=== PATIENT | male | born 1975 | race Caucasian/White ===

== ENCOUNTER 2021-12-06 19:51 | Observation (INO) ==
[2021-12-06] MEDS ORDERED: Iopamidol - 370 500 ML MLS IVP ONE (20:11)
[2021-12-06] MEDS ORDERED: Ipratropium/Albuterol Neb 3 ML IH ONE (20:13)
[2021-12-06] MEDS ORDERED: methylPREDNISolone 125 MG/2 ML VIAL IVP ONE (20:13)
[2021-12-06 20:20] LABS: Basophils % 0.4 %; Eosinophils # 0.3 K/mcL (0.0-0.6); Eosinophils % 3.8 %; Hematocrit 49.8 % (37.5-50.1); Immature Granulocytes % 0.2 % (0-4); Lymphocytes # 2.6 K/mcL (0.6-4.6); Lymphocytes % 29.5 %; Mean Corpuscular HGB Conc 32.1 g/dL (31.6-35.5); Mean Corpuscular Hemoglobin 28.3 pg (28.0-33.3); Mean Corpuscular Volume 88.1 fL (83.0-100.0); Mean Platelet Volume 12.4 fL (9.4-12.4); Monocytes # 0.6 K/mcL (0.0-1.3); Monocytes % 6.4 %; Neutrophils # 5.3 K/mcL (1.6-8.9); Platelet Count 175 K/mcL (140-400); Red Blood Count 5.65 M/mcL (4.19-5.50); Segmented Neutrophils % 59.7 %; White Blood Count 8.9 K/mcL (4.3-11.1)
[2021-12-06 20:35] LABS: INR 1.1; Prothrombin Time 12.7 Seconds (9.4-12.1)
[2021-12-06 20:47] LABS: ABG Base Excess 9 mEq/L (-2 to 3); ABG HCO3 38 mEq/L (21-27); ABG Oxygen Saturation 94 % (95-98); ABG PCO2 64 mmHg (35-45); ABG PH 7.38 pH Units (7.32-7.45); ABG PO2 77 mmHg (85-104); ABG TCO2 40 mEq/L (20-26)
[2021-12-06 20:54] LABS: BUN/Creatinine Ratio 3 (6-26); Blood Urea Nitrogen 2 mg/dL (6-20); Calcium 8.8 mg/dL (8.6-10.3); Carbon Dioxide 41 mEq/L (23-29); Chloride 91 mEq/L (98-107); Glucose 99 mg/dL (70-105); Osmolality,Calculated 280 (280-300); Potassium 3.7 mEq/L (3.5-5.1); Sodium 137 mEq/L (136-145); Troponin I < 0.03 ng/mL (< 0.04)
[2021-12-06 20:59] LABS: Influenza A PCR Negative (Negative); Influenza B PCR Negative (Negative); Resp. Syncytial Virus PCR Negative (Negative)
[2021-12-06 21:00] LABS: SARS-CoV-2 by PCR (In House) Negative (Negative)
[2021-12-06] MEDS ORDERED: Azithromycin 500 MG in 0.9 % Sodium Chloride 250 ML IVPB ONE (21:58)
[2021-12-06] MEDS ORDERED: cefTRIAXone 1,000 MG in 0.9 % Sodium Chloride 10 ML IVP ONE (21:58)
[2021-12-06] MEDS ORDERED: Naloxone 0.4 MG/ML INJ IVP PRN (22:55)
[2021-12-06] MEDS ORDERED: Ondansetron 4 MG/2 ML VIAL IVP PRN (22:55)
[2021-12-06] MEDS ORDERED: Acetaminophen 325 MG TABLET PO PRN (22:55)
[2021-12-06] MEDS ORDERED: Ipratropium/Albuterol Neb 3 ML IH PRN (23:04)
[2021-12-07 05:16] LABS: Basophils % 0.2 %; Eosinophils % 0.2 %; Hematocrit 48.7 % (37.5-50.1); Hemoglobin 15.4 g/dL (12.9-16.9); Immature Granulocytes % 0.2 % (0-4); Lymphocytes # 0.8 K/mcL (0.6-4.6); Lymphocytes % 16.9 %; Mean Corpuscular HGB Conc 31.6 g/dL (31.6-35.5); Mean Corpuscular Hemoglobin 27.8 pg (28.0-33.3); Mean Corpuscular Volume 88.1 fL (83.0-100.0); Mean Platelet Volume 12.8 fL (9.4-12.4); Monocytes % 0.9 %; Neutrophils # 3.7 K/mcL (1.6-8.9); Platelet Count 159 K/mcL (140-400); Red Blood Count 5.53 M/mcL (4.19-5.50); Segmented Neutrophils % 81.6 %; White Blood Count 4.5 K/mcL (4.3-11.1)
[2021-12-07 05:21] LABS: VBG HCO3 39 mEq/L (21-27); VBG PCO2 72 mmHg (41-51); VBG PH 7.34 pH Units (7.32-7.42); VBG PO2 59 mmHg (25-50)
[2021-12-07 05:36] LABS: BUN/Creatinine Ratio 3 (6-26); Blood Urea Nitrogen 2 mg/dL (6-20); Calcium 8.7 mg/dL (8.6-10.3); Carbon Dioxide 38 mEq/L (23-29); Chloride 95 mEq/L (98-107); Glucose 155 mg/dL (70-105); Magnesium 1.9 mg/dL (1.6-2.6); Osmolality,Calculated 285 (280-300); Potassium 3.3 mEq/L (3.5-5.1); Sodium 138 mEq/L (136-145)
[2021-12-07 06:42] VITALS: TEMP 97.6
[2021-12-07] MEDS ORDERED: *HR* Enoxaparin 40 MG/0.4 ML SYRINGE SQ SCH (07:00)
[2021-12-07] MEDS ORDERED: Nicotine 14 MG PATCH.TD24 TD SCH (09:00)
[2021-12-07] MEDS ORDERED: predniSONE 20 MG TABLET PO SCH (09:00)
[2021-12-07] MEDS ORDERED: cefTRIAXone 1,000 MG in 0.9 % Sodium Chloride Mini Bag 100 ML IVPB SCH (09:00)
[2021-12-07] MEDS ORDERED: Azithromycin 500 MG in 0.9 % Sodium Chloride 250 ML IVPB SCH (09:00)
[2021-12-07 11:53] VITALS: BP 124/81; PULSE 66; O2SAT 93
== END 2021-12-07 14:42 | disposition left against medical advice (07) ==
LOC: EMEROOARM 19:51 → 3BNU 19:51 → SUATTDRO 22:58 → 3BNU 23:20
PROVIDERS: ADMIT Pharmacist; ATTEND Pharmacist

== ENCOUNTER 2021-12-20 20:26 | Inpatient (IN) ==
[2021-12-20] MEDS ORDERED: methylPREDNISolone 125 MG/2 ML VIAL IVP ONE (20:53)
[2021-12-20] MEDS ORDERED: Ipratropium/Albuterol Neb 3 ML IH ONE (20:54)
[2021-12-20] MEDS ORDERED: Piperacillin/Tazobactam 3.375 GM in 0.9 % Sodium Chloride Mini Bag 100 ML IVPB ONE (20:55)
[2021-12-20 20:56] LABS: ABG Base Excess 7 mEq/L (-2 to 3); ABG HCO3 35 mEq/L (21-27); ABG Oxygen Saturation 100 % (95-98); ABG PCO2 61 mmHg (35-45); ABG PH 7.37 pH Units (7.32-7.45); ABG PO2 243 mmHg (85-104); ABG TCO2 37 mEq/L (20-26)
[2021-12-20] MEDS ORDERED: levoFLOXacin 750 MG/150 ML 750 MG/150 ML BAG IVPB ONE (20:56)
[2021-12-20 21:14] LABS: Basophils # 0.1 K/mcL (0.0-0.2); Basophils % 0.5 %; Eosinophils # 0.1 K/mcL (0.0-0.6); Eosinophils % 1.2 %; Hematocrit 52.7 % (37.5-50.1); Hemoglobin 17.1 g/dL (12.9-16.9); Immature Granulocytes % 0.3 % (0-4); Lymphocytes # 2.9 K/mcL (0.6-4.6); Lymphocytes % 28.1 %; Mean Corpuscular HGB Conc 32.4 g/dL (31.6-35.5); Mean Corpuscular Hemoglobin 28.2 pg (28.0-33.3); Mean Corpuscular Volume 86.8 fL (83.0-100.0); Mean Platelet Volume 13.1 fL (9.4-12.4); Monocytes # 0.7 K/mcL (0.0-1.3); Monocytes % 6.9 %; Neutrophils # 6.5 K/mcL (1.6-8.9); Platelet Count 227 K/mcL (140-400); Red Blood Count 6.07 M/mcL (4.19-5.50); Red Cell Distribution Width 15.9 % (11.5-14.5); White Blood Count 10.3 K/mcL (4.3-11.1)
[2021-12-20 22:11] LABS: Influenza A PCR Negative (Negative); Influenza B PCR Negative (Negative); Resp. Syncytial Virus PCR Negative (Negative)
[2021-12-20 22:18] LABS: SARS-CoV-2 by PCR (In House) Negative (Negative)
[2021-12-20] MEDS ORDERED: Iopamidol - 370 500 ML MLS IVP ONE (22:28)
[2021-12-20 22:40] LABS: Alanine Aminotransferase 14 Units/L (7-52); Albumin 3.7 g/dL (3.5-5.7); Albumin/Globulin Ratio 0.9 (1.1-2.2); Alkaline Phosphatase 101 Units/L (34-104); Aspartate Amino Transferase 24 Units/L (13-39); BUN/Creatinine Ratio 6 (6-26); Bilirubin,Direct 0.1 mg/dL (0.0-0.2); Bilirubin,Indirect 0.8 mg/dL (0.0-1.0); Bilirubin,Total 0.9 mg/dL (0.3-1.0); Blood Urea Nitrogen 4 mg/dL (6-20); Calcium 9.5 mg/dL (8.6-10.3); Carbon Dioxide 35 mEq/L (23-29); Chloride 94 mEq/L (98-107); Globulin 3.9 g/dL (2.4-3.5); Glucose 93 mg/dL (70-105); Osmolality,Calculated 281 (280-300); Potassium 3.6 mEq/L (3.5-5.1); Sodium 137 mEq/L (136-145); Total Protein 7.6 g/dL (6.4-8.9); Troponin I < 0.03 ng/mL (< 0.04)
[2021-12-21] MEDS ORDERED: Ipratropium/Albuterol Neb 3 ML IH ONE (02:04)
[2021-12-21] MEDS ORDERED: Melatonin 3 MG TABLET PO PRN (03:58)
[2021-12-21] MEDS ORDERED: Naloxone 0.4 MG/ML INJ IVP PRN (03:58)
[2021-12-21] MEDS ORDERED: Ondansetron 4 MG/2 ML VIAL IVP PRN (03:58)
[2021-12-21] MEDS ORDERED: Acetaminophen 325 MG TABLET PO PRN (03:58)
[2021-12-21] MEDS ORDERED: Nicotine 21 MG PATCH.TD24 TD PRN (04:20)
[2021-12-21] MEDS: MethylPREDNISolone 40 MG/ML VIAL IVP SCH ×3 (06:35→17:09)
[2021-12-21] MEDS: *HR* Heparin 5,000 UNIT/ML VIAL SQ SCH ×3 (06:35→22:00)
[2021-12-21] MEDS: Ipratropium/Albuterol Neb 3 ML IH SCH ×5 (07:41→23:32)
[2021-12-21] MEDS: Azithromycin 500 MG in 0.9 % Sodium Chloride 250 ML IVPB SCH (09:39)
[2021-12-22] MEDS: MethylPREDNISolone 40 MG/ML VIAL IVP SCH ×2 (00:24→05:47)
[2021-12-22] MEDS: Ipratropium/Albuterol Neb 3 ML IH SCH ×5 (04:08→19:59)
[2021-12-22] MEDS: *HR* Heparin 5,000 UNIT/ML VIAL SQ SCH ×3 (05:46→21:56)
[2021-12-22] MEDS: Azithromycin 500 MG in 0.9 % Sodium Chloride 250 ML IVPB SCH (09:08)
[2021-12-22] MEDS: Budesonide Neb 0.5 MG/2 ML IH SCH ×2 (14:24→19:59)
[2021-12-22] MEDS ORDERED: MethylPREDNISolone 40 MG/ML VIAL IVP SCH (18:00)
[2021-12-23] MEDS: Ipratropium/Albuterol Neb 3 ML IH SCH ×4 (00:18→11:01)
[2021-12-23] MEDS: *HR* Heparin 5,000 UNIT/ML VIAL SQ SCH (05:49)
[2021-12-23 07:35] VITALS: BP 126/68; PULSE 67; TEMP 97.5
[2021-12-23] MEDS: Budesonide Neb 0.5 MG/2 ML IH SCH (07:35)
[2021-12-23] MEDS ORDERED: *HR* Methadone 10 MG TABLET PO SCH (09:00)
[2021-12-23] MEDS ORDERED: Azithromycin 250 MG TABLET PO SCH (09:00)
[2021-12-23] MEDS ORDERED: predniSONE 20 MG TABLET PO SCH (09:00)
[2021-12-23 10:16] VITALS: O2SAT 96
== END 2021-12-23 14:16 | disposition home or self-care (01) | DRG 140 ==
LOC: EMEROOARM 20:26 → 3ANU 20:26 → SUATTDRO 12-21 10:03 → 3ANU 12-21 11:03
PROVIDERS: ADMIT Internal Medicine; ATTEND Internal Medicine